=== PATIENT | male | born 1975 | race American Indian/Alaskan Native ===

== ENCOUNTER 2016-12-12 21:36 | Emergency (ER) | payer OTHER ==
[2016-12-12 22:01] VITALS: BP 167/77
--- NOTE | 2016-12-12 22:47 | EDM.PDOC ---
[id number] HEAD Time Seen by Provider: 12/12/16 21:40 Source of Information: Reports: Patient History Limitations: Reports: No limitations - History of Present Illness INITIAL COMMENTS - FREE TEXT/NARRATIVE: wlking into director product area under stirs struck head on bottom of stair, saw stars, nauseated, no vomiting, no loss of consciousness, Did not fall no other injury - Related Data Allergies/ADRs: Allergies Allergy/AdvReac Type Severity Reaction Status Date / Time lisinopril Allergy Airway Verified 10/16/16 00:46 Tightness valdecoxib [From Bextra] Allergy Swollen Verified 10/16/16 00:46 Tongue Home Meds: Home Meds Adalimumab [Humira] 1 injection SQ ASDIRECTED 05/09/15 [History] Aspirin [Adult Low Dose Aspirin EC] 1 tab PO DAILY 05/09/15 [History] Insulin Aspart [NovoLOG] 30 units SUBCUT TID 05/09/15 [History] Insulin Detemir [Levemir Flextouch] 124 units SUBCUT BEDTIME 05/09/15 [History] Losartan [Cozaar] 100 mg PO DAILY 05/09/15 [History] Omeprazole 20 mg PO DAILY 05/09/15 [History] metFORMIN [Glucophage] 1,000 mg PO DAILY 05/09/15 [History] Albuterol Inhaler 2 puff PF ASDIRECTED PRN 06/05/15 [History] Insulin Detemir [Levemir] 44 units INJECT ACBREAKFAST 11/01/15 [History] atorvaSTATin [Lipitor] 10 mg PO DAILY 11/01/15 [History] Methotrexate 8 tab PO ASDIRECTED 09/08/16 [History] Mometasone/Formoterol [Dulera 200-5 MCG] 2 puff IH DAILY 09/08/16 [History] Chlorthalidone 50 mg PO DAILY 12/12/16 [History] Ergocalciferol (Vitamin D2) [Vitamin D2] 1 cap PO DAILY 12/12/16 [History] Ketotifen Fumarate [Zaditor] 1 drop EYEBOTH ASDIRECTED PRN 12/12/16 [History] Methocarbamol 750 mg PO DAILY 12/12/16 [History] Vitamin B Complex 1 cap PO DAILY 12/12/16 [History] metFORMIN HCl [Metformin HCl] 1,500 mg PO BEDTIME 12/12/16 [History] traMADol HCl [Tramadol HCl] 1 - 2 tab PO ASDIRECTED PRN 12/12/16 [History] Past Medical History HEENT History: Reports: None Other HEENT History: myopia, astigmatism, diabetic retinopathy Cardiovascular History: Reports: High cholesterol, Hypertension, SOB on exertion Respiratory History: Reports: Asthma, Sleep apnea, SOB Gastrointestinal History: Reports: GERD Genitourinary History: Reports: None Neurological History: Reports: Neuropathy, diabetic Psychiatric History: Reports: None Endocrine/Metabolic History: Reports: Diabetes, type II, IDDM, Obesity/BMI 30+ Hematologic History: Reports: None Immunologic History: Reports: None Oncologic (Cancer) History: Reports: None Dermatologic History: Reports: Angiodema, Psoriasis - Infectious Disease History Infectious Disease History: Reports: Influenza Other Infectious Disease History: does not know if he has had any childhood diseases - Past Surgical History Head Surgeries/Procedures: Reports: None Cardiovascular Surgical History: Reports: Other (see below) Other Cardiovascular Surgeries/Procedures: angiogram (normal per patient) Musculoskeletal Surgical History: Reports: Arthroscopic knee Social & Family History - Family History Family Medical History: Noncontributory Cardiac: Reports: CAD, High cholesterol, Hypertension Respiratory: Reports: Asthma GI: Reports: Cholelithiasis Endocrine/Metabolic: Reports: Diabetes, type II, Obesity/MBI 30+ - Tobacco Use Smoking Status *Q: Never Smoker Second Hand Smoke Exposure: No - Caffeine Use Caffeine Use: Reports: Soda - Recreational Drug Use Recreational Drug Use: No - Living Situation & Occupation Living situation: Reports: with family Occupation: unemployed ED ROS GENERAL - Review of Systems Review Of Systems: See Below Constitutional: Reports: no symptoms HEENT: Reports: No symptoms Respiratory: Reports: No Symptoms Cardiovascular: Reports: No symptoms GI/Abdominal: Reports: No symptoms Musculoskeletal: Reports: no symptoms Skin: Reports: no symptoms Neurological: Reports: Headache. Denies: Numbness, Paresthesia, Tingling, Gait Disturbance Psychiatric: Reports: No symptoms ED EXAM, HEAD INJURY - Physical Exam Exam: See Below Exam Limited By: No limitations General Appearance: alert, mild distress Head: normocephalic, scalp tenderness (anterior mid parietal, no abrasions) Nexus Criteria: No: posterior, midline cervical tenderness, evidence of intoxication, altered level of consciousness, focal neurological deficit, painful distracting injuries Eyes: bilateral eye: EOMI Ears: normal external exam, normal TMs Nose: normal inspection Throat/Mouth: Normal inspection Neck: non-tender, normal alignment. No: painful range of motion, paraspinous muscle tender, spinous processes tender Respiratory: no respiratory distress GI/Abdominal Exam (Abbreviated): no distention Back Exam: normal inspection Course - Vital Signs Last Recorded V/S: Last Vital Signs Temp 98.1 F 12/12/16 21:37 Pulse 110 H 12/12/16 21:37 Resp 18 12/12/16 21:37 BP 167/77 H 12/12/16 21:37 Pulse Ox 95 12/12/16 21:37 Departure - Departure Time of Disposition: 22:35 Disposition: Home, Self-Care 01 Condition: good Clinical Impression: Concussion with no loss of consciousness Instructions: Head Injury, Adult, [id number] Referrals: Herminia Moncada, PAIN COORDINATOR [Primary Care Provider] - Forms: ED Department Discharge Additional Instructions: Head injury instructions tylenol 650mg every 6 hours as needed for sidcomfort ice to neck are, may alternate with heat for muscle spasm, family members to check on you through the night follow up if continued vomiting or other changes, clinic recheck Saturday
== END 2016-12-12 22:50 | disposition home or self-care (01) ==
LOC: DL.ED 21:36
DX: S06.0X0A Concussion without loss of consciousness, initial encounter (principal); E78.00 Pure hypercholesterolemia, unspecified; I10 Essential (primary) hypertension; K21.9 Gastro-esophageal reflux disease without esophagitis; E11.9 Type 2 diabetes mellitus without complications; Z88.8 Allergy status to other drugs, medicaments and biological substances; Z79.899 Other long term (current) drug therapy; W22.8XXA Striking against or struck by other objects, initial encounter
CPT/HCPCS: 70450; 99283

== ENCOUNTER 2017-07-21 00:27 | Emergency (ER) | payer OTHER ==
[2017-07-21 00:33] VITALS: BP 179/92
[2017-07-21] MEDS ORDERED: methylPREDNISolone Sodium Succinate 125 MG/2 ML SDV IM ONE (01:01)
[2017-07-21] MEDS ORDERED: Azithromycin 250 MG Tab PO ONE (01:01)
--- NOTE | 2017-07-21 01:08 | EDM.PDOC ---
ED HPI GENERAL MEDICAL PROBLEM - General Chief Complaint: Respiratory Problem Stated Complaint: LUNGS, DIFFICULTY BREATHING Time Seen by Provider: 07/21/17 01:03 Source of Information: Reports: Patient History Limitations: Reports: No Limitations - History of Present Illness INITIAL COMMENTS - FREE TEXT/NARRATIVE: been sick with cough past few days and nebs not helping, been feverish at home. Right Chest Pain Score (Numeric/FACES): 3 - Related Data Allergies Allergy/AdvReac Type Severity Reaction Status Date / Time lisinopril Allergy Airway Verified 07/21/17 00:39 Tightness valdecoxib [From Bextra] Allergy Swollen Verified 07/21/17 00:39 Tongue Home Meds: Home Meds Adalimumab [Humira] 1 injection SQ ASDIRECTED 05/09/15 [History] Aspirin [Adult Low Dose Aspirin EC] 1 tab PO DAILY 05/09/15 [History] Insulin Aspart [NovoLOG] 30 units SUBCUT TID 05/09/15 [History] Insulin Detemir [Levemir Flextouch] 124 units SUBCUT BEDTIME 05/09/15 [History] Losartan [Cozaar] 100 mg PO DAILY 05/09/15 [History] Omeprazole 20 mg PO DAILY 05/09/15 [History] metFORMIN [Glucophage] 1,000 mg PO DAILY 05/09/15 [History] Albuterol Inhaler 2 puff PF ASDIRECTED PRN 06/05/15 [History] Insulin Detemir [Levemir] 44 units INJECT ACBREAKFAST 11/01/15 [History] atorvaSTATin [Lipitor] 10 mg PO DAILY 11/01/15 [History] Methotrexate 8 tab PO ASDIRECTED 09/08/16 [History] Chlorthalidone 50 mg PO DAILY 12/12/16 [History] Ketotifen Fumarate [Zaditor] 1 drop EYEBOTH ASDIRECTED PRN 12/12/16 [History] Vitamin B Complex 1 cap PO DAILY 12/12/16 [History] metFORMIN HCl [Metformin HCl] 1,500 mg PO BEDTIME 12/12/16 [History] traMADol HCl [Tramadol HCl] 1 - 2 tab PO ASDIRECTED PRN 12/12/16 [History] Albuterol/Ipratropium [DuoNeb 3.0-0.5 MG/3 ML] 3 ml NEB Q6HRRT PRN 07/21/17 [ History] Pioglitazone [Actos] 30 mg PO DAILY 07/21/17 [History] Past Medical History HEENT History: Reports: None Other HEENT History: myopia, astigmatism, diabetic retinopathy Cardiovascular History: Reports: High Cholesterol, Hypertension, SOB on Exertion Respiratory History: Reports: Asthma, Sleep Apnea, SOB Gastrointestinal History: Reports: GERD Genitourinary History: Reports: None Neurological History: Reports: Neuropathy, Diabetic Psychiatric History: Reports: None Endocrine/Metabolic History: Reports: Diabetes, Type II, IDDM, Obesity/BMI 30+ Hematologic History: Reports: None Immunologic History: Reports: None Oncologic (Cancer) History: Reports: None Dermatologic History: Reports: Angiodema, Psoriasis - Infectious Disease History Infectious Disease History: Reports: Influenza Other Infectious Disease History: does not know if he has had any childhood diseases - Past Surgical History Head Surgeries/Procedures: Reports: None Musculoskeletal Surgical History: Reports: Arthroscopic Knee Social & Family History - Family History Family Medical History: Noncontributory Cardiac: Reports: CAD, High Cholesterol, Hypertension Respiratory: Reports: Asthma GI: Reports: Cholelithiasis Endocrine/Metabolic: Reports: Diabetes, type II, Obesity/MBI 30+ - Tobacco Use Smoking Status *Q: Never Smoker Second Hand Smoke Exposure: No - Caffeine Use Caffeine Use: Reports: Soda - Recreational Drug Use Recreational Drug Use: No - Living Situation & Occupation Living situation: Reports: with Family Occupation: Unemployed ED ROS GENERAL - Review of Systems Review Of Systems: ROS reveals no pertinent complaints other than HPI. ED EXAM, GENERAL - Physical Exam Exam: See Below Exam Limited By: No Limitations General Appearance: Alert, WD/WN, Mild Distress, Other (episodic cough spasms) Ears: Hearing Grossly Normal Throat/Mouth: Normal Voice, No Airway Compromise Head: Atraumatic Neck: Non-Tender, Full Range of Motion Respiratory/Chest: No Respiratory Distress, No Accessory Muscle Use, Rhonchi, Wheezing. No: Decreased Breath Sounds Cardiovascular: Regular Rate, Rhythm GI/Abdominal: Soft, Non-Tender Neurological: Alert, Oriented, Normal Cognition, Normal Gait, No Motor/Sensory Deficits Psychiatric: Normal Affect, Normal Mood Skin Exam: Warm, Dry, Normal Color Lymphatic: No Adenopathy Course - Vital Signs Last Recorded V/S: Last Vital Signs Temp 37.1 C 07/21/17 00:29 Pulse 93 07/21/17 00:29 Resp 18 07/21/17 00:29 BP 179/92 H 07/21/17 00:29 Pulse Ox 97 07/21/17 00:29 - Orders/Labs/Meds Orders: Active Orders 24 hr Category Date Time Status RT Aerosol Therapy [RC] ASDIRECTED Care 07/21/17 01:01 Ordered Meds: Medications Discontinued Medications Generic Name Dose Route Start Last Admin Trade Name Montez PRN Reason Stop Dose Admin Albuterol/Ipratropium 3 ml 07/21/17 01:01 Duoneb 3.0-0.5 Mg/3 Ml NEB 07/21/17 01:02 ONETIME ONE Azithromycin 500 mg 07/21/17 01:01 Zithromax PO 07/21/17 01:02 ONETIME ONE Methylprednisolone Sodium Succinate 125 mg 07/21/17 01:01 Solu-Medrol IM 07/21/17 01:02 ONETIME ONE Departure - Departure Time of Disposition: 01:08 Disposition: Home, Self-Care 01 Condition: Good Clinical Impression: Bronchospasm with bronchitis, acute - Discharge Information Instructions: Bronchospasm, Adult, [id number] Additional Instructions: 1) continue nebs 2) don't sleep flat at night 3) drink lots of liquids 4) recheck as needed rx given; z-rhina medrol dospak - My Orders Last 24 Hours: My Active Orders 07/21/17 01:01 RT Aerosol Therapy [RC] ASDIRECTED - Assessment/Plan Last 24 Hours: My Active Orders 07/21/17 01:01 RT Aerosol Therapy [RC] ASDIRECTED
[2017-07-21] MEDS: Albuterol/Ipratropium 3.0-0.5 MG/3 ML Neb Soln NEB ONE ×2 (01:09→01:23)
[2017-07-21] MEDS ORDERED: Albuterol/Ipratropium 3.0-0.5 MG/3 ML Neb Soln ONE (01:13)
== END 2017-07-21 01:30 | disposition home or self-care (01) ==
LOC: DL.ED 00:27
DX: J20.9 Acute bronchitis, unspecified (principal); I10 Essential (primary) hypertension; E78.00 Pure hypercholesterolemia, unspecified; J45.909 Unspecified asthma, uncomplicated; K21.9 Gastro-esophageal reflux disease without esophagitis; G47.30 Sleep apnea, unspecified; Z79.82 Long term (current) use of aspirin; Z79.899 Other long term (current) drug therapy; Z88.8 Allergy status to other drugs, medicaments and biological substances
CPT/HCPCS: 96372; 99284; A9270; J2930; 99283

== ENCOUNTER 2017-12-14 23:33 | Emergency (ER) | payer OTHER ==
[2017-12-15 00:07] VITALS: BP 160/94
--- NOTE | 2017-12-15 00:19 | EDM.PDOC ---
ED HPI GENERAL MEDICAL PROBLEM - General Chief Complaint: Upper Extremity Injury/Pain Stated Complaint: BROKEN THUMB [id number] Time Seen by Provider: 12/15/17 00:16 Source of Information: Reports: Patient History Limitations: Reports: No Limitations - History of Present Illness INITIAL COMMENTS - FREE TEXT/NARRATIVE: left thumb got stepped on last week. nit getting better and not bending well. Left 1-Thumb Pain Score (Numeric/FACES): 6 - Related Data Allergies Allergy/AdvReac Type Severity Reaction Status Date / Time lisinopril Allergy Airway Verified 12/15/17 00:07 Tightness valdecoxib [From Bextra] Allergy Swollen Verified 12/15/17 00:07 Tongue Home Meds: Home Meds Adalimumab [Humira] 1 injection SQ ASDIRECTED 05/09/15 [History] Aspirin [Adult Low Dose Aspirin EC] 1 tab PO DAILY 05/09/15 [History] Insulin Aspart [NovoLOG] 30 units SUBCUT TID 05/09/15 [History] Insulin Detemir [Levemir Flextouch] 124 units SUBCUT BEDTIME 05/09/15 [History] Losartan [Cozaar] 100 mg PO DAILY 05/09/15 [History] Omeprazole 20 mg PO DAILY 05/09/15 [History] metFORMIN [Glucophage] 1,000 mg PO DAILY 05/09/15 [History] Albuterol Inhaler 2 puff PF ASDIRECTED PRN 06/05/15 [History] Insulin Detemir [Levemir] 44 units INJECT ACBREAKFAST 11/01/15 [History] atorvaSTATin [Lipitor] 10 mg PO DAILY 11/01/15 [History] Methotrexate 8 tab PO ASDIRECTED 09/08/16 [History] Chlorthalidone 50 mg PO DAILY 12/12/16 [History] Ketotifen Fumarate [Zaditor] 1 drop EYEBOTH ASDIRECTED PRN 12/12/16 [History] Vitamin B Complex 1 cap PO DAILY 12/12/16 [History] metFORMIN HCl [Metformin HCl] 1,500 mg PO BEDTIME 12/12/16 [History] traMADol HCl [Tramadol HCl] 1 - 2 tab PO ASDIRECTED PRN 12/12/16 [History] Albuterol/Ipratropium [DuoNeb 3.0-0.5 MG/3 ML] 3 ml NEB Q6HRRT PRN 10/29/17 [ History] Pioglitazone [Actos] 30 mg PO DAILY 07/21/17 [History] Celecoxib [CeleBREX] 200 mg PO DAILY 12/15/17 [History] Past Medical History HEENT History: Reports: None Other HEENT History: myopia, astigmatism, diabetic retinopathy Cardiovascular History: Reports: High Cholesterol, Hypertension, SOB on Exertion Respiratory History: Reports: Asthma, Sleep Apnea, SOB Gastrointestinal History: Reports: GERD Genitourinary History: Reports: None Neurological History: Reports: Neuropathy, Diabetic Psychiatric History: Reports: None Endocrine/Metabolic History: Reports: Diabetes, Type II, IDDM, Obesity/BMI 30+ Hematologic History: Reports: None Immunologic History: Reports: None Oncologic (Cancer) History: Reports: None Dermatologic History: Reports: Angiodema, Psoriasis - Infectious Disease History Infectious Disease History: Reports: Influenza Other Infectious Disease History: does not know if he has had any childhood diseases - Past Surgical History Head Surgeries/Procedures: Reports: None Musculoskeletal Surgical History: Reports: Arthroscopic Knee Social & Family History - Family History Family Medical History: Noncontributory Cardiac: Reports: CAD, High Cholesterol, Hypertension Respiratory: Reports: Asthma GI: Reports: Cholelithiasis Endocrine/Metabolic: Reports: Diabetes, type II, Obesity/MBI 30+ - Tobacco Use Smoking Status *Q: Never Smoker Second Hand Smoke Exposure: No - Caffeine Use Caffeine Use: Reports: Coffee, Energy Drinks, Soda, Tea - Recreational Drug Use Recreational Drug Use: No - Living Situation & Occupation Living situation: Reports: with Family Occupation: Unemployed Review of Systems - Review of Systems Review Of Systems: ROS reveals no pertinent complaints other than HPI. ED EXAM, GENERAL - Physical Exam Exam: See Below Exam Limited By: No Limitations General Appearance: Alert, WD/WN, No Apparent Distress Ears: Hearing Grossly Normal Throat/Mouth: Normal Voice, No Airway Compromise Head: Atraumatic Neck: Non-Tender, Full Range of Motion Respiratory/Chest: No Respiratory Distress Cardiovascular: Regular Rate, Rhythm GI/Abdominal: Soft, Non-Tender Extremities: Limited Range of Motion, Other (left thumb tender R/P, [place] wnl. no gross D/D. c/o problem with flexion-extension) Neurological: Alert, Oriented, Normal Cognition, Normal Gait, No Motor/Sensory Deficits Psychiatric: Normal Affect, Normal Mood Skin Exam: Warm, Dry, Normal Color Lymphatic: No Adenopathy Course - Vital Signs Last Recorded V/S: Last Vital Signs Temp 37.1 C 12/14/17 23:59 Pulse 118 H 12/14/17 23:59 Resp 18 12/14/17 23:59 BP 160/94 H 12/14/17 23:59 Pulse Ox 98 12/14/17 23:59 - Orders/Labs/Meds Orders: Active Orders 24 hr Category Date Time Status Fingers Thumb Lt FA [CR] Urgent Exams 12/15/17 00:15 Taken Departure - Departure Time of Disposition: 01:20 Disposition: Home, Self-Care 01 Condition: Good Clinical Impression: Injury of thumb, left Qualifiers: Encounter type: initial encounter Qualified Code(s): S69.92XA - Unspecified injury of left wrist, hand and finger(s), initial encounter - Discharge Information Forms: ED Department Discharge Additional Instructions: 1) see clinic Saturday for ORTHOPEDIC REFERRAL with tendon problem in moving thumb. - My Orders Last 24 Hours: My Active Orders 12/15/17 00:15 Fingers Thumb Lt FA [CR] Urgent - Assessment/Plan Last 24 Hours: My Active Orders 12/15/17 00:15 Fingers Thumb Lt FA [CR] Urgent
== END 2017-12-15 01:27 | disposition home or self-care (01) ==
LOC: DL.ED 23:33
DX: S69.92XA Unspecified injury of left wrist, hand and finger(s), initial encounter (principal); E66.9 Obesity, unspecified; I10 Essential (primary) hypertension; E78.00 Pure hypercholesterolemia, unspecified; E11.40 Type 2 diabetes mellitus with diabetic neuropathy, unspecified; Z79.4 Long term (current) use of insulin; Z79.899 Other long term (current) drug therapy; W22.8XXA Striking against or struck by other objects, initial encounter; Z79.82 Long term (current) use of aspirin; Z88.8 Allergy status to other drugs, medicaments and biological substances; Z88.6 Allergy status to analgesic agent; Z68.41 Body mass index [BMI] 40.0-44.9, adult
CPT/HCPCS: 73140-FA; 99282; 99283

== ENCOUNTER 2018-06-19 23:12 | Emergency (ER) | payer OTHER ==
[2018-06-19] MEDS ORDERED: Ondansetron 4 MG Tab.DIS PO ONE (23:13)
[2018-06-19] MEDS ORDERED: Acetaminophen/HYDROcodone 325-10 MG Tab PO ONE (23:13)
--- NOTE | 2018-06-19 23:27 | EDM.PDOC ---
ED HPI GENERAL MEDICAL PROBLEM - General Chief Complaint: Genitourinary Problem Stated Complaint: KIDNEY STONE [id number] Time Seen by Provider: 06/19/18 23:25 Source of Information: Reports: Patient History Limitations: Reports: No Limitations - History of Present Illness INITIAL COMMENTS - FREE TEXT/NARRATIVE: states right kidney pain onset 7-7;30 and been slowly moving down to front. has this before from K-stones. denies N/V Right Flank Pain Score (Numeric/FACES): 6 - Related Data Allergies Allergy/AdvReac Type Severity Reaction Status Date / Time lisinopril Allergy Airway Verified 12/15/17 00:07 Tightness valdecoxib [From Bextra] Allergy Swollen Verified 12/15/17 00:07 Tongue Home Meds: Home Meds Adalimumab [Humira] 1 injection SQ ASDIRECTED 05/09/15 [History] Aspirin [Adult Low Dose Aspirin EC] 1 tab PO DAILY 05/09/15 [History] Insulin Aspart [NovoLOG] 30 units SUBCUT TID 05/09/15 [History] Insulin Detemir [Levemir Flextouch] 124 units SUBCUT BEDTIME 05/09/15 [History] Losartan [Cozaar] 100 mg PO DAILY 05/09/15 [History] Omeprazole 20 mg PO DAILY 05/09/15 [History] metFORMIN [Glucophage] 1,000 mg PO BEDTIME 05/09/15 [History] Albuterol Inhaler 2 puff PF ASDIRECTED PRN 06/05/15 [History] Insulin Detemir [Levemir] 44 units INJECT ACBREAKFAST 11/01/15 [History] atorvaSTATin [Lipitor] 10 mg PO DAILY 11/01/15 [History] Chlorthalidone 50 mg PO DAILY 12/12/16 [History] metFORMIN HCl [Metformin HCl] 1,500 mg PO DAILY 12/12/16 [History] traMADol HCl [Tramadol HCl] 1 - 2 tab PO ASDIRECTED PRN 12/12/16 [History] Albuterol/Ipratropium [DuoNeb 3.0-0.5 MG/3 ML] 3 ml NEB Q6HRRT PRN 07/21/17 [ History] Pioglitazone [Actos] 30 mg PO DAILY 07/21/17 [History] Past Medical History HEENT History: Reports: None Other HEENT History: myopia, astigmatism, diabetic retinopathy Cardiovascular History: Reports: High Cholesterol, Hypertension, SOB on Exertion Respiratory History: Reports: Asthma, Sleep Apnea, SOB Gastrointestinal History: Reports: GERD Genitourinary History: Reports: None Neurological History: Reports: Neuropathy, Diabetic Psychiatric History: Reports: None Endocrine/Metabolic History: Reports: Diabetes, Type II, IDDM, Obesity/BMI 30+ Hematologic History: Reports: None Immunologic History: Reports: None Oncologic (Cancer) History: Reports: None Dermatologic History: Reports: Angiodema, Psoriasis - Infectious Disease History Infectious Disease History: Reports: Influenza Other Infectious Disease History: does not know if he has had any childhood diseases - Past Surgical History Head Surgeries/Procedures: Reports: None Musculoskeletal Surgical History: Reports: Arthroscopic Knee Social & Family History - Family History Family Medical History: Noncontributory Cardiac: Reports: CAD, High Cholesterol, Hypertension Respiratory: Reports: Asthma GI: Reports: Cholelithiasis Endocrine/Metabolic: Reports: Diabetes, type II, Obesity/MBI 30+ - Caffeine Use Caffeine Use: Reports: Coffee, Energy Drinks, Soda, Tea - Living Situation & Occupation Living situation: Reports: with Family Occupation: Unemployed ED ROS GENERAL - Review of Systems Review Of Systems: ROS reveals no pertinent complaints other than HPI. ED EXAM, RENAL/ - Physical Exam Exam: See Below Exam Limited By: No Limitations General Appearance: Alert, WD/WN, No Apparent Distress Ears: Hearing Grossly Normal Throat/Mouth: Normal Voice, No Airway Compromise Head: Atraumatic Neck: Non-Tender, Full Range of Motion Respiratory/Chest: No Respiratory Distress Cardiovascular: Regular Rate, Rhythm GI/Abdominal: Soft, Non-Tender Back Exam: CVA Tenderness (R) Neurological: Alert, Oriented, Normal Cognition, Normal Gait, No Motor/Sensory Deficits Psychiatric: Flat Affect Skin Exam: Warm, Dry, Normal Color Lymphatic: No Adenopathy Course - Vital Signs Last Recorded V/S: Last Vital Signs Temp 36.8 C 06/19/18 23:25 Pulse 111 H 06/19/18 23:25 Resp 22 H 06/19/18 23:25 BP 144/83 H 06/19/18 23:25 Pulse Ox 98 06/19/18 23:25 - Orders/Labs/Meds Labs: Laboratory Tests 06/19/18 Range/Units 23:18 Urine Color Dark yellow (YELLOW) Urine Appearance Turbid (CLEAR) Urine pH 5.5 (5.0-9.0) Ur Specific [place] 1.020 (1.005-1.030) Urine Protein Negative (NEGATIVE) Urine Glucose (UA) 500 H (NEGATIVE) Urine Ketones Negative (NEGATIVE) Urine Occult Blood Large H (NEGATIVE) Urine Nitrite Negative (NEGATIVE) Urine Bilirubin Negative (NEGATIVE) Urine Urobilinogen 0.2 (0.2-1.0) mg/dL Ur Leukocyte Esterase Negative (NEGATIVE) Urine RBC >100 H /HPF Urine WBC 0-5 (0-5/HPF) /HPF Ur Epithelial Cells Rare /HPF Amorphous Sediment Few (0/HPF) /HPF Urine Bacteria Rare (0-FEW/HPF) /HPF Urine Mucus Rare /LPF Meds: Medications Discontinued Medications Generic Name Dose Route Start Last Admin Trade Name Freq PRN Reason Stop Dose Admin Hydrocodone Bitart/Acetaminophen Confirm 06/20/18 01:04 06/20/18 01:08 [place] 325-10 Mg Administered 06/20/18 01:05 Not Given Dose 1 tab .ROUTE .STK-MED ONE Ondansetron HCl Confirm 06/20/18 01:03 06/20/18 01:08 Zofran Odt Administered 06/20/18 01:04 Not Given Dose 4 mg .ROUTE .STK-MED ONE - Re-Assessments/Exams Free Text/Narrative Re-Assessment/Exam: 06/20/18 00:49 results discussed with pt. Departure - Departure Time of Disposition: 01:05 Disposition: Home, Self-Care 01 Condition: Good Clinical Impression: Kidney stone - Discharge Information Instructions: Kidney Stones, [id number] Forms: ED Department Discharge Additional Instructions: 1) drink lots of liquids 2) see clinic tomorrow for NEPHROLOGY REFERRAL for possible lithitrypsy 3) recheck if there is any change or concern rx togo; zofran ODT 4mg x 1 noco 10 x 1
[2018-06-19 23:36] VITALS: BP 144/83
[2018-06-20] MEDS ORDERED: Ondansetron 4 MG Tab.DIS ONE (01:03)
[2018-06-20] MEDS ORDERED: Acetaminophen/HYDROcodone 325-10 MG Tab ONE (01:04)
== END 2018-06-20 01:08 | disposition home or self-care (01) ==
LOC: DL.ED 23:12
DX: N20.0 Calculus of kidney (principal); E78.00 Pure hypercholesterolemia, unspecified; I10 Essential (primary) hypertension; E11.40 Type 2 diabetes mellitus with diabetic neuropathy, unspecified; Z88.8 Allergy status to other drugs, medicaments and biological substances; Z79.899 Other long term (current) drug therapy; Z79.82 Long term (current) use of aspirin; Z79.4 Long term (current) use of insulin
CPT/HCPCS: 74176; 81001; 99284; A9270; 99283

== ENCOUNTER 2018-10-17 00:06 | Emergency (ER) | payer OTHER ==
[2018-10-17] MEDS ORDERED: Ketorolac 30 MG/ML SDV IVPUSH ONE (00:11)
[2018-10-17 00:13] VITALS: BP 143/89
[2018-10-17 00:36] LABS: ANION GAP 16.5
--- NOTE | 2018-10-17 00:54 | EDM.PDOC ---
ED HPI GENERAL MEDICAL PROBLEM - General Chief Complaint: Genitourinary Problem Stated Complaint: AMBULANCE-UNKNOWN Time Seen by Provider: 10/17/18 00:51 Source of Information: Reports: Patient History Limitations: Reports: No Limitations - History of Present Illness INITIAL COMMENTS - FREE TEXT/NARRATIVE: had uretral stent removed today and developed RLQ pain going down to groin tonight. took Rx from urolog but not helping. looks like there is blood in urine and been having problem urinating also. rlq Pain Score (Numeric/FACES): 7 - Related Data Allergies Allergy/AdvReac Type Severity Reaction Status Date / Time lisinopril Allergy Airway Verified 08/14/18 11:15 Tightness valdecoxib [From Bextra] Allergy Swollen Verified 08/14/18 11:15 Tongue Home Meds: Home Meds Adalimumab [Humira] 1 injection SQ ASDIRECTED 05/09/15 [History] Aspirin [Adult Low Dose Aspirin EC] 1 tab PO DAILY 05/09/15 [History] Insulin Aspart [NovoLOG] 30 units SUBCUT TID 05/09/15 [History] Insulin Detemir [Levemir Flextouch] 124 units SUBCUT BEDTIME 05/09/15 [History] Losartan [Cozaar] 100 mg PO DAILY 05/09/15 [History] Omeprazole 20 mg PO DAILY 05/09/15 [History] metFORMIN [Glucophage] 1,000 mg PO BEDTIME 05/09/15 [History] Albuterol Inhaler 2 puff PF ASDIRECTED PRN 06/05/15 [History] Insulin Detemir [Levemir] 44 units INJECT ACBREAKFAST 11/01/15 [History] atorvaSTATin [Lipitor] 10 mg PO DAILY 11/01/15 [History] Chlorthalidone 50 mg PO DAILY 12/12/16 [History] metFORMIN HCl [Metformin HCl] 1,500 mg PO DAILY 12/12/16 [History] traMADol HCl [Tramadol HCl] 1 - 2 tab PO ASDIRECTED PRN 12/12/16 [History] Albuterol/Ipratropium [DuoNeb 3.0-0.5 MG/3 ML] 3 ml NEB Q6HRRT PRN 07/21/17 [ History] Pioglitazone [Actos] 30 mg PO DAILY 07/21/17 [History] Saxagliptin HCl [Onglyza] 5 mg PO DAILY 11/22/18 [History] Past Medical History HEENT History: Reports: None Other HEENT History: myopia, astigmatism, diabetic retinopathy Cardiovascular History: Reports: CAD, High Cholesterol, Hypertension, SOB on Exertion Respiratory History: Reports: Asthma, Sleep Apnea, SOB Gastrointestinal History: Reports: GERD Genitourinary History: Reports: Renal Calculus Neurological History: Reports: Neuropathy, Diabetic Psychiatric History: Reports: None Endocrine/Metabolic History: Reports: Diabetes, Type II, IDDM, Obesity/BMI 30+ Hematologic History: Reports: None Immunologic History: Reports: None Oncologic (Cancer) History: Reports: None Dermatologic History: Reports: Angiodema, Psoriasis - Infectious Disease History Infectious Disease History: Reports: Influenza Other Infectious Disease History: does not know if he has had any childhood diseases - Past Surgical History Head Surgeries/Procedures: Reports: None Musculoskeletal Surgical History: Reports: Arthroscopic Knee Social & Family History - Family History Family Medical History: Noncontributory Cardiac: Reports: CAD, High Cholesterol, Hypertension Respiratory: Reports: Asthma GI: Reports: Cholelithiasis Endocrine/Metabolic: Reports: Diabetes, type II, Obesity/MBI 30+ - Tobacco Use Smoking Status *Q: Never Smoker Second Hand Smoke Exposure: No - Caffeine Use Caffeine Use: Reports: Coffee, Energy Drinks, Soda, Tea - Recreational Drug Use Recreational Drug Use: No - Living Situation & Occupation Living situation: Reports: with Family Occupation: Unemployed ED ROS GENERAL - Review of Systems Review Of Systems: ROS reveals no pertinent complaints other than HPI. ED EXAM, RENAL/ - Physical Exam Exam: See Below Exam Limited By: No Limitations General Appearance: Alert, WD/WN, Mild Distress, Moderate Distress, Other (pain) Ears: Hearing Grossly Normal Throat/Mouth: Normal Voice, No Airway Compromise Head: Atraumatic Neck: Non-Tender, Full Range of Motion Respiratory/Chest: No Respiratory Distress Cardiovascular: Regular Rate, Rhythm GI/Abdominal: Soft, Tender, Other (suprapub, RLQ region). No: Distended, Guarding, Rigid, Rebound Back Exam: CVA Tenderness (R) Neurological: Alert, Oriented, Normal Cognition, Normal Gait, No Motor/Sensory Deficits Psychiatric: Tearful Skin Exam: Warm, Dry, Normal Color Lymphatic: No Adenopathy Course - Vital Signs Last Recorded V/S: Last Vital Signs Temp 37.0 C 10/17/18 00:09 Pulse 105 H 10/17/18 00:09 Resp 18 10/17/18 00:09 BP 143/89 H 10/17/18 00:09 Pulse Ox 96 10/17/18 00:09 - Orders/Labs/Meds Orders: Active Orders 24 hr Category Date Time Status CULTURE URINE [RM] Stat Lab 10/17/18 00:33 Received Labs: Laboratory Tests 10/17/18 10/17/18 10/17/18 Range/Units 00:10 00:10 00:10 WBC 10.9 H (5.0-10.0) 10^3/uL RBC 4.69 (4.6-6.2) 10^6/uL Hgb 12.3 L (14.0-18.0) g/dL Hct 38.8 L (40.0-54.0) % MCV 82.7 (80-100) fL MCH 26.2 L (27.0-34.0) pg MCHC 31.7 L (33.0-35.0) g/dL Plt Count 315 (150-450) 10^3/uL Neut % (Auto) 65.2 (42.2-75.2) % Lymph % (Auto) 22.2 (20.5-50.1) % [place] % (Auto) 7.0 (2-8) % Eos % (Auto) 5.0 H (1.0-3.0) % Baso % (Auto) 0.6 (0.0-1.0) % Sodium 132 L (135-145) mmol/L Potassium 3.5 L (3.6-5.0) mmol/L Chloride 97 L (101-111) mmol/L Carbon Dioxide 22.0 (21.0-31.0) mmol/L Anion Gap 16.5 BUN 16 (7-18) mg/dL Creatinine 1.4 H (0.6-1.3) mg/dL Est Cr Clr Drug Dosing 70.97 mL/min Estimated GFR (MDRD) 56 BUN/Creatinine Ratio 11.42 Glucose 284 H (74-105) mg/dL Lactic Acid 2.5 H (0.5-2.2) mmol/L Calcium 8.0 L (8.4-10.2) mg/dl Total Bilirubin 0.5 (0.2-1.0) mg/dL AST 28 (10-42) IU/L ALT 31 (10-60) IU/L Alkaline Phosphatase 47 (42-121) IU/L Total Protein 7.2 (6.7-8.2) g/dl Albumin 3.6 (3.2-5.5) g/dl Globulin 3.6 Albumin/Globulin Ratio 1.00 Urine Color (YELLOW) Urine Appearance (CLEAR) Urine pH (5.0-9.0) Ur Specific [place] (1.005-1.030) Urine Protein (NEGATIVE) Urine Glucose (UA) (NEGATIVE) Urine Ketones (NEGATIVE) Urine Occult Blood (NEGATIVE) Urine Nitrite (NEGATIVE) Urine Bilirubin (NEGATIVE) Urine Urobilinogen (0.2-1.0) mg/dL Ur Leukocyte Esterase (NEGATIVE) Urine RBC /HPF Urine WBC (0-5/HPF) /HPF Ur Epithelial Cells /HPF Urine Bacteria (0-FEW/HPF) /HPF Urine Mucus /LPF 10/17/18 Range/Units 00:33 WBC (5.0-10.0) 10^3/uL RBC (4.6-6.2) 10^6/uL Hgb (14.0-18.0) g/dL Hct (40.0-54.0) % MCV (80-100) fL MCH (27.0-34.0) pg MCHC (33.0-35.0) g/dL Plt Count (150-450) 10^3/uL Neut % (Auto) (42.2-75.2) % Lymph % (Auto) (20.5-50.1) % [place] % (Auto) (2-8) % Eos % (Auto) (1.0-3.0) % Baso % (Auto) (0.0-1.0) % Sodium (135-145) mmol/L Potassium (3.6-5.0) mmol/L Chloride (101-111) mmol/L Carbon Dioxide (21.0-31.0) mmol/L Anion Gap BUN (7-18) mg/dL Creatinine (0.6-1.3) mg/dL Est Cr Clr Drug Dosing mL/min Estimated GFR (MDRD) BUN/Creatinine Ratio Glucose (74-105) mg/dL Lactic Acid (0.5-2.2) mmol/L Calcium (8.4-10.2) mg/dl Total Bilirubin (0.2-1.0) mg/dL AST (10-42) IU/L ALT (10-60) IU/L Alkaline Phosphatase (42-121) IU/L Total Protein (6.7-8.2) g/dl Albumin (3.2-5.5) g/dl Globulin Albumin/Globulin Ratio Urine Color [place] (YELLOW) Urine Appearance Turbid (CLEAR) Urine pH 5.0 (5.0-9.0) Ur Specific [place] >= 1.030 (1.005-1.030) Urine Protein >=300 H (NEGATIVE) Urine Glucose (UA) 500 H (NEGATIVE) Urine Ketones 15 H (NEGATIVE) Urine Occult Blood Large H (NEGATIVE) Urine Nitrite Positive H (NEGATIVE) Urine Bilirubin Small H (NEGATIVE) Urine Urobilinogen 2.0 H (0.2-1.0) mg/dL Ur Leukocyte Esterase Negative (NEGATIVE) Urine RBC Semi-packed H /HPF Urine WBC 5-10 H (0-5/HPF) /HPF Ur Epithelial Cells Few /HPF Urine Bacteria Moderate H (0-FEW/HPF) /HPF Urine Mucus Moderate H /LPF Meds: Medications Discontinued Medications Generic Name Dose Route Start Last Admin Trade Name Freq PRN Reason Stop Dose Admin Ketorolac Tromethamine 30 mg 10/17/18 00:11 10/17/18 00:34 Toradol IVPUSH 10/17/18 00:12 30 mg ONETIME ONE Administration - Re-Assessments/Exams Free Text/Narrative Re-Assessment/Exam: 10/17/18 03:04 results discussed with pt who is pain free presently. able to produce urine for u/a Departure - Departure Time of Disposition: 03:04 Disposition: Home, Self-Care 01 Condition: Good Clinical Impression: Renal colic on right side - Discharge Information Instructions: Renal Colic, [id number] Forms: ED Department Discharge Additional Instructions: 1) continue home meds 2) follow up at clinic 3) recheck as needed - My Orders Last 24 Hours: My Active Orders 10/17/18 00:33 CULTURE URINE [RM] Stat - Assessment/Plan Last 24 Hours: My Active Orders 10/17/18 00:33 CULTURE URINE [RM] Stat
== END 2018-10-17 03:11 | disposition home or self-care (01) ==
LOC: DL.ED 00:06
DX: N20.0 Calculus of kidney (principal); I10 Essential (primary) hypertension; E11.9 Type 2 diabetes mellitus without complications; Z88.8 Allergy status to other drugs, medicaments and biological substances; Z79.82 Long term (current) use of aspirin; Z79.899 Other long term (current) drug therapy
CPT/HCPCS: 36415; 74176; 80053; 81001; 83605; 85025; 87086; 96374; 99284; J1885; 99283

== ENCOUNTER 2018-10-17 10:49 | Emergency (ER) | payer OTHER ==
[2018-10-17 11:06] VITALS: BP 151/98
[2018-10-17 11:30] LABS: ANION GAP 14.4; CHLORIDE,CL 98 mmol/L (101-111); SODIUM,NA 133 mmol/L (135-145)
[2018-10-17] MEDS ORDERED: Ketorolac 30 MG/ML SDV IVPUSH ONE (12:07)
[2018-10-17] MEDS ORDERED: Sodium Chloride 0.9% 10 ML Syringe FLUSH PRN (12:07)
[2018-10-17] MEDS ORDERED: Sodium Chloride 0.9% 1,000 ML IV ONE (12:07)
--- NOTE | 2018-10-17 12:52 | EDM.PDOC ---
ED HPI GENERAL MEDICAL PROBLEM - General Chief Complaint: Genitourinary Problem Stated Complaint: [facility] SENT HIM [id number] Time Seen by Provider: 10/17/18 10:57 Source of Information: Reports: Patient, RN, RN Notes Reviewed History Limitations: Reports: No Limitations - History of Present Illness INITIAL COMMENTS - FREE TEXT/NARRATIVE: Patient presents to ER from [facility]. He states he had a stent removed from kidney yesterday at [facility]. He presented to the ER last night with complaint of pain. He presented to [facility] with complaint of fever and pain. He was told to report to the ER. He presents with right lower quadrant /flank pain. He has had fever and chills. No nausea, vomiting, diarrhea, chest pain or shortness of breath. Onset: Today Duration: Getting Worse Location: Reports: Abdomen Quality: Reports: Ache Severity: Severe Improves with: Reports: None Worsens with: Reports: None Associated Symptoms: Reports: No Other Symptoms - Related Data Allergies Allergy/AdvReac Type Severity Reaction Status Date / Time lisinopril Allergy Airway Verified 10/17/18 11:06 Tightness valdecoxib [From Bextra] Allergy Swollen Verified 10/17/18 11:06 Tongue Home Meds: Home Meds Aspirin [Adult Low Dose Aspirin EC] 1 tab PO DAILY 05/09/15 [History] Insulin Aspart [NovoLOG] 30 units SUBCUT TID 05/09/15 [History] Insulin Detemir [Levemir Flextouch] 124 units SUBCUT BEDTIME 05/09/15 [History] Losartan [Cozaar] 100 mg PO DAILY 05/09/15 [History] Omeprazole 20 mg PO DAILY 05/09/15 [History] metFORMIN [Glucophage] 1,000 mg PO BEDTIME 05/09/15 [History] Albuterol Inhaler 2 puff PF ASDIRECTED PRN 06/05/15 [History] Insulin Detemir [Levemir] 44 units INJECT ACBREAKFAST 11/01/15 [History] atorvaSTATin [Lipitor] 10 mg PO DAILY 11/01/15 [History] Chlorthalidone 50 mg PO DAILY 12/12/16 [History] metFORMIN HCl [Metformin HCl] 1,500 mg PO DAILY 12/12/16 [History] traMADol HCl [Tramadol HCl] 1 - 2 tab PO ASDIRECTED PRN 12/12/16 [History] Albuterol/Ipratropium [DuoNeb 3.0-0.5 MG/3 ML] 3 ml NEB Q6HRRT PRN 07/21/17 [ History] Pioglitazone [Actos] 30 mg PO DAILY 07/21/17 [History] Saxagliptin HCl [Onglyza] 5 mg PO DAILY 08/14/18 [History] Past Medical History HEENT History: Reports: None Other HEENT History: myopia, astigmatism, diabetic retinopathy Cardiovascular History: Reports: CAD, High Cholesterol, Hypertension, SOB on Exertion Respiratory History: Reports: Asthma, Sleep Apnea, SOB Gastrointestinal History: Reports: GERD Genitourinary History: Reports: Renal Calculus Neurological History: Reports: Neuropathy, Diabetic Psychiatric History: Reports: None Endocrine/Metabolic History: Reports: Diabetes, Type II, IDDM, Obesity/BMI 30+ Hematologic History: Reports: None Immunologic History: Reports: None Oncologic (Cancer) History: Reports: None Dermatologic History: Reports: Angiodema, Psoriasis - Infectious Disease History Infectious Disease History: Reports: Influenza Other Infectious Disease History: does not know if he has had any childhood diseases - Past Surgical History Head Surgeries/Procedures: Reports: None Musculoskeletal Surgical History: Reports: Arthroscopic Knee Social & Family History - Family History Family Medical History: Noncontributory Cardiac: Reports: CAD, High Cholesterol, Hypertension Respiratory: Reports: Asthma GI: Reports: Cholelithiasis Endocrine/Metabolic: Reports: Diabetes, type II, Obesity/MBI 30+ - Tobacco Use Smoking Status *Q: Never Smoker Second Hand Smoke Exposure: No - Caffeine Use Caffeine Use: Reports: Energy Drinks - Recreational Drug Use Recreational Drug Use: No - Living Situation & Occupation Living situation: Reports: with Family Occupation: Unemployed ED ROS GENERAL - Review of Systems Review Of Systems: ROS reveals no pertinent complaints other than HPI. ED EXAM, RENAL/ - Physical Exam Exam: See Below Exam Limited By: No Limitations General Appearance: Alert, WD/WN, No Apparent Distress Eye Exam: Bilateral Eye: EOMI, Normal Inspection, PERRL Ears: Normal External Exam, Normal Canal, Hearing Grossly Normal, Normal TMs Nose: Normal Inspection, Normal Mucosa, No Blood Throat/Mouth: Normal Inspection, Normal Lips, Normal Teeth, Normal Gums, Normal Oropharynx, Normal Voice, No Airway Compromise Head: Atraumatic, Normocephalic Neck: Normal Inspection, Supple, Non-Tender, Full Range of Motion Respiratory/Chest: No Respiratory Distress, Lungs Clear, Normal Breath Sounds, No Accessory Muscle Use, Chest Non-Tender Cardiovascular: Normal Peripheral Pulses, Regular Rate, Rhythm, No Edema, No Gallop, No JVD, No Murmur, No Rub GI/Abdominal: Tender (right lower quadrant and right upper quadrant. He also has right CVA tenderness.) (Male) Exam: Deferred Rectal (Males) Exam: Deferred Back Exam: Normal Inspection, Full Range of Motion, NT Extremities: Normal Inspection, Normal Range of Motion, Non-Tender, Normal Capillary Refill, No Pedal Edema Neurological: Alert, Oriented, CN II-XII Intact, Normal Cognition, Normal Gait, Normal Reflexes, No Motor/Sensory Deficits Psychiatric: Normal Affect, Normal Mood Skin Exam: Warm, Dry, Intact, Normal Color, No Rash Lymphatic: No Adenopathy Course - Vital Signs Last Recorded V/S: Last Vital Signs Temp 97.6 F 10/17/18 10:53 Pulse 101 H 10/17/18 10:53 Resp 18 10/17/18 10:53 BP 151/98 H 10/17/18 10:53 Pulse Ox 96 10/17/18 10:53 - Orders/Labs/Meds Orders: Active Orders 24 hr Category Date Time Status Peripheral IV Care [RC] . DIRECTED Care 10/17/18 12:07 Active Peripheral IV Insertion Adult [OM.PC] Stat Oth 10/17/18 12:07 Ordered Labs: Laboratory Tests 10/17/18 10/17/18 10/17/18 Range/Units 10:52 11:02 11:02 WBC 9.6 (5.0-10.0) 10^3/uL RBC 4.67 (4.6-6.2) 10^6/uL Hgb 12.4 L (14.0-18.0) g/dL Hct 38.8 L (40.0-54.0) % MCV 83.1 (80-100) fL MCH 26.6 L (27.0-34.0) pg MCHC 32.0 L (33.0-35.0) g/dL Plt Count 313 (150-450) 10^3/uL Neut % (Auto) 65.5 (42.2-75.2) % Lymph % (Auto) 18.9 L (20.5-50.1) % [place] % (Auto) 8.9 H (2-8) % Eos % (Auto) 6.0 H (1.0-3.0) % Baso % (Auto) 0.7 (0.0-1.0) % Sodium 133 L (135-145) mmol/L Potassium 3.4 L (3.6-5.0) mmol/L Chloride 98 L (101-111) mmol/L Carbon Dioxide 24.0 (21.0-31.0) mmol/L Anion Gap 14.4 BUN 26 H (7-18) mg/dL Creatinine 1.1 (0.6-1.3) mg/dL Est Cr Clr Drug Dosing 90.33 mL/min Estimated GFR (MDRD) > 60 BUN/Creatinine Ratio 23.63 Glucose 216 H (74-105) mg/dL Calcium 8.4 (8.4-10.2) mg/dl Total Bilirubin 0.7 (0.2-1.0) mg/dL AST 25 (10-42) IU/L ALT 31 (10-60) IU/L Alkaline Phosphatase 48 (42-121) IU/L Total Protein 7.4 (6.7-8.2) g/dl Albumin 3.7 (3.2-5.5) g/dl Globulin 3.7 Albumin/Globulin Ratio 1.00 Urine Color Dark yellow (YELLOW) Urine Appearance Turbid (CLEAR) Urine pH 5.5 (5.0-9.0) Ur Specific [place] >= 1.030 (1.005-1.030) Urine Protein 100 H (NEGATIVE) Urine Glucose (UA) Negative (NEGATIVE) Urine Ketones Negative (NEGATIVE) Urine Occult Blood Large H (NEGATIVE) Urine Nitrite Positive H (NEGATIVE) Urine Bilirubin Negative (NEGATIVE) Urine Urobilinogen 0.2 (0.2-1.0) mg/dL Ur Leukocyte Esterase Small H (NEGATIVE) Urine RBC >100 H /HPF Urine WBC 10-20 H (0-5/HPF) /HPF Ur Epithelial Cells Few /HPF Amorphous Sediment Rare (0/HPF) /HPF Urine Bacteria Moderate H (0-FEW/HPF) /HPF Urine Mucus Few H /LPF Urine Yeast Few H (0/HPF) /HPF Meds: Medications Discontinued Medications Generic Name Dose Route Start Last Admin Trade Name Freq PRN Reason Stop Dose Admin Sodium Chloride 1,000 mls @ 999 mls/hr 10/17/18 12:07 10/17/18 12:15 Normal Saline IV 10/17/18 13:07 999 mls/hr .BOLUS ONE Administration Ketorolac Tromethamine 30 mg 10/17/18 12:07 10/17/18 12:19 Toradol IVPUSH 10/17/18 12:08 30 mg ONETIME ONE Administration Sodium Chloride 10 ml 10/17/18 12:07 10/17/18 12:16 Saline Flush FLUSH 10 ml ASDIRECTED PRN Administration Keep Vein Open Departure - Departure Time of Disposition: 12:50 Disposition: Home, Self-Care 01 Condition: Fair Clinical Impression: UTI, Urinary tract infectious disease - Discharge Information *PRESCRIPTION DRUG MONITORING PROGRAM REVIEWED*: No *COPY OF PRESCRIPTION DRUG MONITORING REPORT IN PATIENT KRANTHI: No Instructions: Urinary Tract Infection, Adult, [id number] Referrals: PCP,None [Primary Care Provider] - Forms: ED Department Discharge Additional Instructions: Drink plenty of water RX: Ciprofloxacin Follow up with your primary care facility May use Tylenol and/or Ibuprofen as directed for pain - My Orders Last 24 Hours: My Active Orders 10/17/18 12:07 Peripheral IV Care [RC] . DIRECTED Peripheral IV Insertion Adult [OM.PC] Stat - Assessment/Plan Last 24 Hours: My Active Orders 10/17/18 12:07 Peripheral IV Care [RC] . DIRECTED Peripheral IV Insertion Adult [OM.PC] Stat
== END 2018-10-17 13:21 | disposition home or self-care (01) ==
LOC: DL.ED 10:49
DX: N39.0 Urinary tract infection, site not specified (principal); I10 Essential (primary) hypertension; E11.9 Type 2 diabetes mellitus without complications; E66.9 Obesity, unspecified; Z88.8 Allergy status to other drugs, medicaments and biological substances; Z79.82 Long term (current) use of aspirin
CPT/HCPCS: 36415; 80053; 81001; 85025; 96361; 96374; 99284; J1885; J7030; 99283

== ENCOUNTER 2019-04-16 06:55 | Day surgery (SDC) | payer BC, OTHER ==
[~2019-04-16 06:55] MED LIST: Dextrose 5%-0.45% NaCl 1,000 ML IV SCH; Midazolam 1 MG/ML 2 ML SDV ONE; Sodium Chloride 0.9% 10 ML Syringe FLUSH PRN; fentaNYL 100 MCG/2 ML SDV ONE
[2019-04-16] MEDS ORDERED: Midazolam 1 MG/ML 2 ML SDV IV ONE ×7 (06:56→07:44)
[2019-04-16] MEDS ORDERED: fentaNYL 100 MCG/2 ML SDV IV ONE ×3 (06:56→07:35)
[2019-04-16] MEDS ORDERED: Dextrose 5%-0.45% NaCl 1,000 ML IV SCH (07:00)
--- NOTE | 2019-04-16 09:21 | OR ---
DATE: 04/16/2019 PROCEDURE: Total colonoscopy. INSTRUMENT USED: [id number] Olympus video colonoscope. PREMEDICATIONS: Fentanyl 100 mcg intravenous, Versed 4 mg intravenous. Nasal O2 cannula. The procedure was done under pulse oximetry, BP recording, and nuclear reactor technician. INDICATION: The patient with iron-deficiency anemia. Colonoscopic examination is done for detection of any polypoid lesions and removal, endoscopic hemostasis therapy if needed. DESCRIPTION OF PROCEDURE: Initial rectal exam was unremarkable. Rigid anoscopy showed small internal hemorrhoids without bleeding from them. The colonoscope was passed with ease up to the ileocecal area. Photographs were taken of the normal-appearing cecum, identified by landmarks of appendiceal orifice and double-bulged ileocecal folds. No bleeding was noted from any of the visualized areas at the commencement of the examination. There was a large amount of fecal material that had to be aspirated. Bowel preparation, [place] scale 2 in all the regions. No stricture. No vascular ectasia. No large isolated ulcerations seen. No evidence of diffuse inflammatory bowel disease in the form of friability, contact bleeding, or ulcerations. No polyp or tumor mass identified. Probing the proximal sides of folds and flexures, using adequate distention and clearing of the stool material, withdrawal of the scope was made, cecum to rectum time over 6 minutes. No bleeding was noted from any of the visualized areas at the completion of examination. IMPRESSION: Internal hemorrhoids. The patient tolerated the procedure well. [facility] /[id number]
--- NOTE | 2019-04-16 09:48 | LETTER ---
04/16/2019 Naren Lepe M.D. [facility] [address] [place] [address] RE: DIANA OLIVAS : [address] Lepe: Mr. Diana Olivas had colonoscopic examination done this morning and he tolerated the procedure well. I herewith send a copy of the endoscopy note and photographs for your review. Thank you. Sincerely, [facility] /[id number]
[2019-04-16 09:57] VITALS: BP 157/89
== END 2019-04-16 10:00 | disposition home or self-care (01) ==
LOC: DL.ENDO 06:55
PROVIDERS: ATTEND Internal Medicine Gastroenterology
DX: D50.9 Iron deficiency anemia, unspecified (principal); K64.8 Other hemorrhoids
CPT/HCPCS: 45378; J2250; J3010; J7042; G0121

== ENCOUNTER 2019-07-09 15:13 | Emergency (ER) | payer BC, OTHER ==
[2019-07-09 15:26] VITALS: BP 141/94; PULSE 103
--- NOTE | 2019-07-09 16:57 | EDM.PDOC ---
ED HPI GENERAL MEDICAL PROBLEM - General Chief Complaint: Head Injury Stated Complaint: AMBULANCE Time Seen by Provider: 07/09/19 15:45 Source of Information: Reports: Patient History Limitations: Reports: No Limitations - History of Present Illness INITIAL COMMENTS - FREE TEXT/NARRATIVE: patient comes emergency department today with complaints of a headache and dizziness. He was seen at the [facility] clinic and sent here for further evaluation for a CAT scan of his head as well as the cervical spine. On Saturday he was outside shoveling snow when he slipped falling backwards and struck his head on the ground and was knocked out. According to his security camera he was out for just about 6-1/2 minutes. He did not come in and be evaluated at that time due to the weather. Since that time he has had kind of a dull headache no double vision. He has some lightheadedness upon standing. No other syncope. He did fall over in the grocery store yesterday when he was leaning forward to grab something he became lightheaded fell and hit his head but was not knocked out. He has had no nausea or vomiting. No diplopia no paresthesias of his upper or lower extremity. No change in the functionality of his upper or lower tremors. No loss of bowel or bladder. No chest pain or shortness of breath or difficulty breathing. No palpitations. No weakness or paresthesia. No abdominal pain nausea or vomiting and he denies back pain. Posterior Head Pain Score (Numeric/FACES): 4 - Related Data Allergies Allergy/AdvReac Type Severity Reaction Status Date / Time amlodipine Allergy Tachycardia Verified 07/09/19 15:26 clonidine Allergy Cannot Verified 07/09/19 15:26 Remember lisinopril Allergy Airway Verified 07/09/19 15:26 Tightness valdecoxib [From Bextra] Allergy Swollen Verified 07/09/19 15:26 Tongue Home Meds: Home Meds Insulin Aspart [NovoLOG] 40 units SUBCUT TID 05/09/15 [History] Insulin Detemir [Levemir Flextouch] 150 units SUBCUT BEDTIME 05/09/15 [History] Losartan [Cozaar] 100 mg PO DAILY 05/09/15 [History] Omeprazole 20 mg PO BID 05/09/15 [History] metFORMIN [Glucophage] 1,000 mg PO BEDTIME 05/09/15 [History] Albuterol Inhaler 2 puff PF ASDIRECTED PRN 06/05/15 [History] Insulin Detemir [Levemir] 40 units INJECT .MORNING 11/01/15 [History] atorvaSTATin [Lipitor] 10 mg PO DAILY 11/01/15 [History] Chlorthalidone 50 mg PO DAILY 12/12/16 [History] metFORMIN HCl [Metformin HCl] 1,500 mg PO DAILY 12/12/16 [History] Albuterol/Ipratropium [DuoNeb 3.0-0.5 MG/3 ML] 3 ml NEB Q6HRRT PRN 07/21/17 [ History] Pioglitazone [Actos] 30 mg PO DAILY 07/21/17 [History] Clobetasol [Clobetasol 0.05%] 1 applic TOP BID 03/19/19 [History] Ergocalciferol (Vitamin D2) [Vitamin D2] 2,000 unit PO DAILY 03/19/19 [History] Melatonin/Pyridoxine HCl (B6) [Melatonin 3 mg Tablet] 1 each PO .PRN PRN [History] Potassium Citrate [Urocit-K] 10 meq PO BID 03/19/19 [History] Secukinumab [Cosentyx Pen] 1 injection SQ .Q28 DAYS 03/19/19 [History] Vitamin B Complex [B Complex] 1 each PO DAILY 03/19/19 [History] Albuterol Sulfate [Proair Hfa] 1 puff INH BID 07/09/19 [History] Past Medical History HEENT History: Reports: Impaired Vision Other HEENT History: wears glasses Cardiovascular History: Reports: CAD, High Cholesterol, Hypertension, SOB on Exertion Respiratory History: Reports: Asthma, Sleep Apnea, SOB Gastrointestinal History: Reports: GERD Genitourinary History: Reports: None, Renal Calculus Musculoskeletal History: Reports: Arthritis, Back Pain, Chronic, Fracture Neurological History: Reports: Neuropathy, Diabetic Psychiatric History: Reports: None Endocrine/Metabolic History: Reports: Diabetes, Type II, IDDM, Obesity/BMI 30+ Hematologic History: Reports: B12 Deficiency Immunologic History: Reports: None Oncologic (Cancer) History: Reports: None Dermatologic History: Reports: Angiodema, Psoriasis - Infectious Disease History Infectious Disease History: Reports: Influenza Other Infectious Disease History: does not know if he has had any childhood diseases - Past Surgical History Head Surgeries/Procedures: Reports: None Cardiovascular Surgical History: Reports: Other (See Below) Other Cardiovascular Surgeries/Procedures: angiogram (normal per patient) Respiratory Surgical History: Reports: None GI Surgical History: Reports: EGD Male Surgical History: Reports: Lithotripsy (ESWL) Musculoskeletal Surgical History: Reports: Arthroscopic Knee Other Musculoskeletal Surgeries/Procedures:: RIGHT KNEE SURGERY Social & Family History - Family History Family Medical History: Noncontributory Cardiac: Reports: CAD, High Cholesterol, Hypertension Respiratory: Reports: Asthma GI: Reports: Cholelithiasis Endocrine/Metabolic: Reports: Diabetes, type II, Obesity/MBI 30+ - Tobacco Use Smoking Status *Q: Never Smoker Second Hand Smoke Exposure: No - Caffeine Use Caffeine Use: Reports: Soda Other Caffeine Use: 1 ENERGY DRINK DAILY. 1SODA DAILY - Recreational Drug Use Recreational Drug Use: No - Living Situation & Occupation Living situation: Reports: with Family Occupation: Unemployed ED ROS GENERAL - Review of Systems Review Of Systems: ROS reveals no pertinent complaints other than HPI. ED EXAM, HEAD INJURY - Physical Exam Exam: See Below Exam Limited By: No Limitations General Appearance: Alert, WD/WN, No Apparent Distress Head: Atraumatic, Normocephalic. No: Coleman's Sign, Raccoon Eyes Nexus Criteria: No: Posterior, Midline Cervical Tenderness (no midline tenderness some paraspinal tenderness), Evidence of Intoxication, Altered Level of Consciousness, Focal Neurological Deficit, Painful Distraction Injuries Eyes: Bilateral Eye: EOMI, Normal Inspection, PERRL Ears: Normal External Exam (except for some psoriasis on his ears chronic), Normal Canal, Normal TMs. No: TM Blood Nose: Normal Inspection Throat/Mouth: Normal Inspection, Normal Lips, Normal Oropharynx Neck: Limited Range of Motion, Paraspinous Muscle Tender. No: Tender Midline Respiratory: No Respiratory Distress, Lungs Clear, Normal Breath Sounds, No Accessory Muscle Use Cardiovascular: Normal Peripheral Pulses, Regular Rate, Rhythm GI/Abdominal Exam: Normal Bowel Sounds, Soft, Non-Tender Back Exam: Normal Inspection, Full Range of Motion. No: Paraspinal Tenderness, Vertebral Tenderness Extremities: Normal Inspection, Normal Range of Motion, Normal Capillary Refill Neurologic: No Motor/Sensory Deficits, Alert, Normal Mood/Affect, Oriented x 3 DTR: 2+: Bicep (R), Bicep (L), Patella (R), Patella (L), Achilles (R), Achilles (L) Skin: Normal Color, Warm/Dry - Eva Coma Score Best Eye Response (Bowdle): (4) Open Spontaneously Best Verbal Response (Eva): (5) Oriented Best Motor Response (Bowdle): (6) Obeys Commands Course - Vital Signs Last Recorded V/S: Last Vital Signs Temp 36.8 C 07/09/19 15:16 Pulse 103 H 07/09/19 15:16 Resp 16 07/09/19 15:16 BP 141/94 H 07/09/19 15:16 Pulse Ox 98 07/09/19 15:16 - Radiology Interpretation Free Text/Narrative:: CT cervical spine per radiology normal no sign of traumatic cervical injury CT of the head per radiology normal no changeon a traumatic injury. Chronic mild left maxillary fluid - Re-Assessments/Exams Free Text/Narrative Re-Assessment/Exam: 07/09/19 17:21 I reviewed the negative CT of the head of the neck to the patient. This is really the sequelae of postconcussion syndrome. We will refer him to physical therapy rest and decrease stimulation and follow-up with his primary care is comfortable with this plan his questions are answered Departure - Departure Time of Disposition: 16:54 Disposition: Home, Self-Care 01 Clinical Impression: Post-concussion syndrome - Discharge Information Instructions: Concussion, Adult, [id number], Post-Concussion Syndrome, Easy- to-Read Forms: ED Department Discharge Additional Instructions: rest as much as possible. To include decreased stimulation from lights and sounds. Especially from back lit devices like phones her tablets Tylenol as needed for headache. Make position changes Slowly See physical therapy for post concussion syndrome management next available. Return to the ED if new or worsening symptoms Follow up with PCP in 1 week for recheck. - Assessment/Plan Assessment:: Post concussion syndrom. Plan: rest as much as possible. To include decreased stimulation from lights and sounds. Especially from back lit devices like phones her tablets Tylenol as needed for headache. Make position changes Slowly See physical therapy for post concussion syndrome management next available. Return to the ED if new or worsening symptoms Follow up with PCP in 1 week for recheck.
== END 2019-07-09 17:05 | disposition home or self-care (01) ==
LOC: DL.ED 15:13
DX: R42 Dizziness and giddiness (principal); F07.81 Postconcussional syndrome; G44.309 Post-traumatic headache, unspecified, not intractable; K21.9 Gastro-esophageal reflux disease without esophagitis; E11.9 Type 2 diabetes mellitus without complications; I10 Essential (primary) hypertension; I25.10 Atherosclerotic heart disease of native coronary artery without angina pectoris; E78.00 Pure hypercholesterolemia, unspecified; J45.909 Unspecified asthma, uncomplicated; E66.9 Obesity, unspecified; Z88.8 Allergy status to other drugs, medicaments and biological substances; Z88.6 Allergy status to analgesic agent; Z79.899 Other long term (current) drug therapy; Z68.43 Body mass index [BMI] 50.0-59.9, adult; Z79.4 Long term (current) use of insulin
CPT/HCPCS: 70450; 72125; 99284

== ENCOUNTER 2019-08-25 21:12 | Emergency (ER) | payer BC, OTHER ==
[2019-08-25 21:21] VITALS: BP 163/98; PULSE 120
[2019-08-25] MEDS ORDERED: predniSONE 20 MG Tab PO ONE (21:48)
[2019-08-25] MEDS ORDERED: Acetaminophen/HYDROcodone 325-10 MG Tab PO ONE (21:48)
[2019-08-25] MEDS ORDERED: Cyclobenzaprine 10 MG Tab PO ONE (21:48)
--- NOTE | 2019-08-25 21:53 | EDM.PDOC ---
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 Pain lateral back worse with movement. no radiation of pain. 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 Lower Back Pain Score (Numeric/FACES): 6 - Related Data Allergies Allergy/AdvReac Type Severity Reaction Status Date / Time amlodipine Allergy Tachycardia Verified 07/09/19 15:26 clonidine Allergy Cannot Verified 07/09/19 15:26 Remember lisinopril Allergy Airway Verified 07/09/19 15:26 Tightness valdecoxib [From Bextra] Allergy Swollen Verified 07/09/19 15:26 Tongue Home Meds: Home Meds Insulin Aspart [NovoLOG] 40 units SUBCUT TID 05/09/15 [History] Insulin Detemir [Levemir Flextouch] 150 units SUBCUT BEDTIME 05/09/15 [History] Losartan [Cozaar] 100 mg PO DAILY 05/09/15 [History] Omeprazole 20 mg PO BID 05/09/15 [History] metFORMIN [Glucophage] 1,000 mg PO BEDTIME 05/09/15 [History] Albuterol Inhaler 2 puff PF ASDIRECTED PRN 06/05/15 [History] Insulin Detemir [Levemir] 50 units INJECT .MORNING 11/01/15 [History] atorvaSTATin [Lipitor] 10 mg PO DAILY 11/01/15 [History] Chlorthalidone 50 mg PO DAILY 12/12/16 [History] metFORMIN HCl [Metformin HCl] 1,500 mg PO DAILY 12/12/16 [History] Albuterol/Ipratropium [DuoNeb 3.0-0.5 MG/3 ML] 3 ml NEB Q6HRRT PRN 07/21/17 [ History] Pioglitazone [Actos] 30 mg PO DAILY 07/21/17 [History] Clobetasol [Clobetasol 0.05%] 1 applic TOP BID PRN 03/19/19 [History] Ergocalciferol (Vitamin D2) [Vitamin D2] 2,000 unit PO DAILY 03/19/19 [History] Melatonin/Pyridoxine HCl (B6) [Melatonin 3 mg Tablet] 1 each PO .PRN PRN [History] Potassium Citrate [Urocit-K] 10 meq PO BID 03/19/19 [History] Secukinumab [Cosentyx Pen] 1 injection SQ .Q28 DAYS 03/19/19 [History] Vitamin B Complex [B Complex] 1 each PO DAILY 03/19/19 [History] Albuterol Sulfate [Proair Hfa] 1 puff INH BID 07/09/19 [History] Past Medical History HEENT History: Reports: Impaired Vision Other HEENT History: wears glasses Cardiovascular History: Reports: CAD, High Cholesterol, Hypertension, SOB on Exertion Respiratory History: Reports: Asthma, Sleep Apnea, SOB Gastrointestinal History: Reports: GERD Genitourinary History: Reports: None, Renal Calculus Musculoskeletal History: Reports: Arthritis, Back Pain, Chronic, Fracture Neurological History: Reports: Neuropathy, Diabetic Psychiatric History: Reports: None Endocrine/Metabolic History: Reports: Diabetes, Type II, IDDM, Obesity/BMI 30+ Hematologic History: Reports: B12 Deficiency Immunologic History: Reports: None Oncologic (Cancer) History: Reports: None Dermatologic History: Reports: Angiodema, Psoriasis - Infectious Disease History Infectious Disease History: Reports: Influenza Other Infectious Disease History: does not know if he has had any childhood diseases - Past Surgical History Head Surgeries/Procedures: Reports: None Cardiovascular Surgical History: Reports: Other (See Below) Other Cardiovascular Surgeries/Procedures: angiogram (normal per patient) Respiratory Surgical History: Reports: None GI Surgical History: Reports: EGD Male Surgical History: Reports: Lithotripsy (ESWL) Musculoskeletal Surgical History: Reports: Arthroscopic Knee Other Musculoskeletal Surgeries/Procedures:: RIGHT KNEE SURGERY Social & Family History - Family History Family Medical History: Noncontributory Cardiac: Reports: CAD, High Cholesterol, Hypertension Respiratory: Reports: Asthma GI: Reports: Cholelithiasis Endocrine/Metabolic: Reports: Diabetes, type II, Obesity/MBI 30+ - Tobacco Use Smoking Status *Q: Never Smoker Second Hand Smoke Exposure: No - Caffeine Use Caffeine Use: Reports: Soda Other Caffeine Use: 1 ENERGY DRINK DAILY. 1SODA DAILY - Recreational Drug Use Recreational Drug Use: No - Living Situation & Occupation Living situation: Reports: with Family Occupation: Unemployed ED ROS GENERAL - Review of Systems Review Of Systems: Comprehensive ROS is negative, except as noted in HPI. ED EXAM,LOWER BACK PAIN/INJURY - Physical Exam Exam: See Below Exam Limited By: No Limitations General Appearance: Alert, Mild Distress, Obese Eye Exam: Bilateral Eye: EOMI Ears: Normal External Exam Nose: Normal Inspection Throat/Mouth: Normal Inspection Head: Atraumatic, Normocephalic Neck: Normal Inspection Respiratory/Chest: No Respiratory Distress, Lungs Clear Cardiovascular: Regular Rate, Rhythm GI/Abdominal: Soft Back Exam: Decreased Range of Motion, Paraspinal Tenderness (bilateral lumbar). No: Vertebral Tenderness Extremities: Normal Inspection Neurological: Alert, Normal Mood/Affect, Normal Dorsiflexion Skin Exam: Warm, Dry, Intact, Normal Color Course - Vital Signs Last Recorded V/S: Last Vital Signs Temp 98.8 F 08/25/19 21:20 Pulse 120 H 08/25/19 21:20 Resp 18 08/25/19 21:20 BP 163/98 H 08/25/19 21:20 Pulse Ox 96 08/25/19 21:20 - Orders/Labs/Meds Meds: Medications Discontinued Medications Generic Name Dose Route Start Last Admin Trade Name Freq PRN Reason Stop Dose Admin Hydrocodone Bitart/Acetaminophen 1 tab 08/25/19 21:48 08/25/19 21:55 Metaline 325-10 Mg PO 08/25/19 21:49 1 tab ONETIME ONE Administration Hydrocodone Bitart/Acetaminophen Confirm 08/25/19 22:01 Metaline 325-10 Mg Administered 08/25/19 22:02 Dose 1 tab .ROUTE .STK-MED ONE Cyclobenzaprine HCl 10 mg 08/25/19 21:48 08/25/19 21:56 Flexeril PO 08/25/19 21:49 10 mg ONETIME ONE Administration Cyclobenzaprine HCl Confirm 08/25/19 22:01 Flexeril Administered 08/25/19 22:02 Dose 10 mg .ROUTE .STK-MED ONE Prednisone 20 mg 08/25/19 21:48 08/25/19 21:56 Prednisone PO 08/25/19 21:49 20 mg ONETIME ONE Administration Departure - Departure Time of Disposition: 21:51 Disposition: Home, Self-Care 01 Condition: Good Clinical Impression: Strain of lumbar region Qualifiers: Encounter type: initial encounter Qualified Code(s): S39.012A - Strain of muscle, fascia and tendon of lower back, initial encounter - Discharge Information *PRESCRIPTION DRUG MONITORING PROGRAM REVIEWED*: No *COPY OF PRESCRIPTION DRUG MONITORING REPORT IN PATIENT KRANTHI: No Instructions: Low Back Sprain Forms: ED Department Discharge Additional Instructions: Prednisone 20mg x 2 days, 10mg, 2 days 5mg x 2 days flexeril 10mg one every 8 hours as needed tylenol 650mg every 6 hours as needed rest no lifting follow up clinic next week, sooner if symptoms worsen
[2019-08-25] MEDS ORDERED: Cyclobenzaprine 10 MG Tab ONE (22:01)
[2019-08-25] MEDS ORDERED: Acetaminophen/HYDROcodone 325-10 MG Tab ONE (22:01)
== END 2019-08-25 22:07 | disposition home or self-care (01) ==
LOC: DL.ED 21:12
DX: S39.012A Strain of muscle, fascia and tendon of lower back, initial encounter (principal); I25.10 Atherosclerotic heart disease of native coronary artery without angina pectoris; E78.00 Pure hypercholesterolemia, unspecified; I10 Essential (primary) hypertension; J45.909 Unspecified asthma, uncomplicated; K21.9 Gastro-esophageal reflux disease without esophagitis; E11.40 Type 2 diabetes mellitus with diabetic neuropathy, unspecified; M19.90 Unspecified osteoarthritis, unspecified site; L40.9 Psoriasis, unspecified; E66.9 Obesity, unspecified; Z68.42 Body mass index [BMI] 45.0-49.9, adult; Z88.8 Allergy status to other drugs, medicaments and biological substances; Z88.6 Allergy status to analgesic agent; Z79.4 Long term (current) use of insulin; Z79.899 Other long term (current) drug therapy; X50.0XXA Overexertion from strenuous movement or load, initial encounter; Y99.0 Civilian activity done for income or pay
CPT/HCPCS: 99283; A9270

== ENCOUNTER 2020-03-08 15:52 | Emergency (ER) | payer OTHER ==
[2020-03-08 16:17] VITALS: BP 125/59; PULSE 78
--- NOTE | 2020-03-08 16:34 | CR ---
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 Views: 3 or more views. COMPARISON: No relevant prior studies available. FINDINGS: Bones/joints: Mild enthesopathy at the insertion of the Achilles tendon.There is a plantar calcaneal spur. No acute fracture or dislocation. Soft tissues: Normal. Vasculature: Atherosclerosis IMPRESSION: No acute finding.
[2020-03-08] MEDS ORDERED: Acetaminophen 325 MG Tab PO ONE (16:38)
--- NOTE | 2020-03-08 16:52 | EDM.PDOC ---
Scribed by Shalonda Yañez 03/08/20 [id number] for Lynsey Martin NP ED HPI GENERAL MEDICAL PROBLEM - General Chief Complaint: Lower Extremity Injury/Pain Stated Complaint: RIGHT FOOT BROKEN PER PT. Time Seen by Provider: 03/08/20 16:29 Source of Information: Reports: Patient, RN, RN Notes Reviewed History Limitations: Reports: No Limitations - History of Present Illness INITIAL COMMENTS - FREE TEXT/NARRATIVE: Patient presents to ER with complaint of right foot pain. 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 Rates the pain 5/10--burning pain. No previous injuries to the foot. he has taken no meds for pain. Onset: Today Duration: Getting Worse Location: Reports: Lower Extremity, Right Quality: Reports: Ache Severity: Moderate Improves with: Reports: None Worsens with: Reports: None Associated Symptoms: Reports: No Other Symptoms - Related Data Allergies Allergy/AdvReac Type Severity Reaction Status Date / Time amlodipine Allergy Tachycardia Verified 07/09/19 15:26 clonidine Allergy Cannot Verified 07/09/19 15:26 Remember lisinopril Allergy Airway Verified 07/09/19 15:26 Tightness valdecoxib [From Bextra] Allergy Swollen Verified 07/09/19 15:26 Tongue Home Meds: Home Meds Insulin Aspart [NovoLOG] 40 units SUBCUT TID 05/09/15 [History] Insulin Detemir [Levemir Flextouch] 150 units SUBCUT BEDTIME 05/09/15 [History] Losartan [Cozaar] 100 mg PO DAILY 05/09/15 [History] Omeprazole 20 mg PO BID 05/09/15 [History] metFORMIN [Glucophage] 1,000 mg PO BEDTIME 05/09/15 [History] Albuterol Inhaler 2 puff PF ASDIRECTED PRN 06/05/15 [History] Insulin Detemir [Levemir] 50 units INJECT .MORNING 11/01/15 [History] atorvaSTATin [Lipitor] 10 mg PO DAILY 11/01/15 [History] Chlorthalidone 50 mg PO DAILY 12/12/16 [History] metFORMIN HCl [Metformin HCl] 1,500 mg PO DAILY 12/12/16 [History] Albuterol/Ipratropium [DuoNeb 3.0-0.5 MG/3 ML] 3 ml NEB Q6HRRT PRN 07/21/17 [ History] Pioglitazone [Actos] 30 mg PO DAILY 07/21/17 [History] Clobetasol [Clobetasol 0.05%] 1 applic TOP BID PRN 03/19/19 [History] Ergocalciferol (Vitamin D2) [Vitamin D2] 2,000 unit PO DAILY 03/19/19 [History] Melatonin/Pyridoxine HCl (B6) [Melatonin 3 mg Tablet] 1 each PO .PRN PRN [History] Potassium Citrate [Urocit-K] 10 meq PO BID 03/19/19 [History] Secukinumab [Cosentyx Pen] 1 injection SQ .Q28 DAYS 03/19/19 [History] Vitamin B Complex [B Complex] 1 each PO DAILY 03/19/19 [History] Albuterol Sulfate [Proair Hfa] 1 puff INH BID 07/09/19 [History] Past Medical History HEENT History: Reports: Impaired Vision Other HEENT History: wears glasses Cardiovascular History: Reports: CAD, High Cholesterol, Hypertension, SOB on Exertion Respiratory History: Reports: Asthma, Sleep Apnea, SOB Gastrointestinal History: Reports: GERD Genitourinary History: Reports: None, Renal Calculus Musculoskeletal History: Reports: Arthritis, Back Pain, Chronic, Fracture Neurological History: Reports: Neuropathy, Diabetic Psychiatric History: Reports: None Endocrine/Metabolic History: Reports: Diabetes, Type II, IDDM, Obesity/BMI 30+ Hematologic History: Reports: B12 Deficiency Immunologic History: Reports: None Oncologic (Cancer) History: Reports: None Dermatologic History: Reports: Angiodema, Psoriasis - Infectious Disease History Infectious Disease History: Reports: Influenza Other Infectious Disease History: does not know if he has had any childhood diseases - Past Surgical History Head Surgeries/Procedures: Reports: None Cardiovascular Surgical History: Reports: Other (See Below) Other Cardiovascular Surgeries/Procedures: angiogram (normal per patient) Respiratory Surgical History: Reports: None GI Surgical History: Reports: EGD Male Surgical History: Reports: Lithotripsy (ESWL) Musculoskeletal Surgical History: Reports: Arthroscopic Knee Other Musculoskeletal Surgeries/Procedures:: RIGHT KNEE SURGERY Social & Family History - Family History Family Medical History: Noncontributory Cardiac: Reports: CAD, High Cholesterol, Hypertension Respiratory: Reports: Asthma GI: Reports: Cholelithiasis Endocrine/Metabolic: Reports: Diabetes, type II, Obesity/MBI 30+ - Caffeine Use Caffeine Use: Reports: Soda Other Caffeine Use: 1 ENERGY DRINK DAILY. 1SODA DAILY - Living Situation & Occupation Living situation: Reports: with Family Occupation: Unemployed Review of Systems - Review of Systems Review Of Systems: Comprehensive ROS is negative, except as noted in HPI. ED EXAM, GENERAL - Physical Exam Exam: See Below Exam Limited By: No Limitations General Appearance: Obese Eye Exam: Bilateral Eye: EOMI, Normal Inspection, PERRL Ears: Normal External Exam, Normal Canal, Hearing Grossly Normal, Normal TMs Nose: Normal Inspection, Normal Mucosa, No Blood Throat/Mouth: Normal Inspection, Normal Lips, Normal Teeth, Normal Gums, Normal Oropharynx, Normal Voice, No Airway Compromise Head: Atraumatic, Normocephalic Neck: Normal Inspection, Supple, Non-Tender, Full Range of Motion Respiratory/Chest: No Respiratory Distress, Lungs Clear, Normal Breath Sounds, No Accessory Muscle Use, Chest Non-Tender Cardiovascular: Normal Peripheral Pulses, Regular Rate, Rhythm, No Edema, No Gallop, No JVD, No Murmur, No Rub GI/Abdominal: Normal Bowel Sounds, Soft, Non-Tender, No Organomegaly, No Distention, No Abnormal Bruit, No Mass (Male) Exam: Deferred Rectal (Males) Exam: Deferred Back Exam: Normal Inspection, Full Range of Motion, NT Extremities: Other (swelling top of right foot. Pedal pulses +2. ) Neurological: Alert, Oriented, CN II-XII Intact, Normal Cognition, Normal Gait, Normal Reflexes, No Motor/Sensory Deficits Psychiatric: Normal Affect, Normal Mood Skin Exam: Dry (very. Eczema) Lymphatic: No Adenopathy Course - Vital Signs Last Recorded V/S: Last Vital Signs Temp 97.1 F 03/08/20 16:12 Pulse 78 03/08/20 16:12 Resp 16 03/08/20 16:12 BP 125/59 L 03/08/20 16:12 Pulse Ox 99 03/08/20 16:12 - Orders/Labs/Meds Meds: Medications Discontinued Medications Generic Name Dose Route Start Last Admin Trade Name Freq PRN Reason Stop Dose Admin Acetaminophen 650 mg 03/08/20 16:38 Tylenol PO 03/08/20 16:39 NOW ONE - Radiology Interpretation Free Text/Narrative:: Right foot xray: PROCEDURE INFORMATION: Exam: XR Right Foot Complete Exam date and time: 03/08/2020 4:24 PM Age: 44 years old Clinical indication: Injury or trauma; Initial encounter; Blunt trauma; Foot; Right; Additional 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 Views: 3 or more views. COMPARISON: No relevant prior studies available. FINDINGS: Bones/joints: Mild enthesopathy at the insertion of the Achilles tendon.There is a plantar calcaneal spur. No acute fracture or dislocation. Soft tissues: Normal. Vasculature: Atherosclerosis IMPRESSION: No acute finding. Thank you for allowing us to participate in the care of your patient. Dictated and Authenticated by: Sonja Ramos MD 03/08/2020 4:34 PM Central Time ([place] & [place]) see rad report Departure - Departure Time of Disposition: 16:39 Disposition: Home, Self-Care 01 Condition: Good Clinical Impression: Contusion of right foot Qualifiers: Encounter type: initial encounter Qualified Code(s): S90.31XA - Contusion of right foot, initial encounter - Discharge Information *PRESCRIPTION DRUG MONITORING PROGRAM REVIEWED*: No *COPY OF PRESCRIPTION DRUG MONITORING REPORT IN PATIENT KRANTHI: No Instructions: Foot Contusion, [id number] Forms: ED Department Discharge Additional Instructions: Elevate and ice as tolerated May use Tylenol as directed for pain Follow up with your primary care facility Sepsis Event Note (ED) - Evaluation Sepsis Screening Result: No Definite Risk - Focused Exam Vital Signs: Vital Signs Temp Pulse Resp BP Pulse Ox 03/08/20 16:12 97.1 F 78 16 125/59 L 99 I have read and agree with the documentation that has been completed regarding this visit. By signing this record, I attest that the documentation was completed in my physical presence and is an accurate record of the encounter.
== END 2020-03-08 17:03 | disposition home or self-care (01) ==
LOC: DL.ED 15:52
DX: S90.31XA Contusion of right foot, initial encounter (principal); I10 Essential (primary) hypertension; E78.00 Pure hypercholesterolemia, unspecified; I25.10 Atherosclerotic heart disease of native coronary artery without angina pectoris; J45.909 Unspecified asthma, uncomplicated; K21.9 Gastro-esophageal reflux disease without esophagitis; M19.90 Unspecified osteoarthritis, unspecified site; E11.40 Type 2 diabetes mellitus with diabetic neuropathy, unspecified; E66.9 Obesity, unspecified; Z68.43 Body mass index [BMI] 50.0-59.9, adult; Z88.8 Allergy status to other drugs, medicaments and biological substances; Z79.4 Long term (current) use of insulin; Z79.899 Other long term (current) drug therapy; W22.8XXA Striking against or struck by other objects, initial encounter; Y93.E5 Activity, floor mopping and cleaning; Y92.89 Other specified places as the place of occurrence of the external cause; Y99.0 Civilian activity done for income or pay
CPT/HCPCS: 73630; 99283; A9270

== ENCOUNTER 2021-01-08 14:00 | Emergency (ER) | payer OTHER ==
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
[2021-01-08] MEDS ORDERED: Albuterol 6.7 GM Inhaler INH ONE (15:34)
[2021-01-08 15:55] VITALS: BP 144/82; PULSE 97
== END 2021-01-08 16:15 | disposition home or self-care (01) ==
LOC: DL.ED 14:00
DX: T59.811A Toxic effect of smoke, accidental (unintentional), initial encounter (principal); R21 Rash and other nonspecific skin eruption; I25.10 Atherosclerotic heart disease of native coronary artery without angina pectoris; E78.00 Pure hypercholesterolemia, unspecified; I10 Essential (primary) hypertension; E66.9 Obesity, unspecified; E11.40 Type 2 diabetes mellitus with diabetic neuropathy, unspecified; J45.909 Unspecified asthma, uncomplicated; Z68.43 Body mass index [BMI] 50.0-59.9, adult; Z79.899 Other long term (current) drug therapy; Z88.8 Allergy status to other drugs, medicaments and biological substances; Z88.6 Allergy status to analgesic agent
CPT/HCPCS: 71046; 82375; A9270; 99283; 99284-25

== ENCOUNTER 2021-11-16 21:05 | Emergency (ER) | payer OTHER ==
[2021-11-16] MEDS ORDERED: Acetaminophen/HYDROcodone 325-10 MG Tab PO ONE (21:06)
[2021-11-16 21:16] VITALS: PULSE 117
[2021-11-16] MEDS ORDERED: Acetaminophen/oxyCODONE 325-5 MG Tab PO ONE (21:38)
[2021-11-17] MEDS ORDERED: Acetaminophen/HYDROcodone 325-10 MG Tab ONE (00:24)
== END 2021-11-17 00:28 | disposition home or self-care (01) ==
LOC: DL.ED 21:05
DX: S00.83XA Contusion of other part of head, initial encounter (principal); R07.81 Pleurodynia; M54.6 Pain in thoracic spine; I25.10 Atherosclerotic heart disease of native coronary artery without angina pectoris; E78.00 Pure hypercholesterolemia, unspecified; I10 Essential (primary) hypertension; K21.9 Gastro-esophageal reflux disease without esophagitis; E11.9 Type 2 diabetes mellitus without complications; E66.9 Obesity, unspecified; Z68.41 Body mass index [BMI] 40.0-44.9, adult; Z88.5 Allergy status to narcotic agent; Z88.8 Allergy status to other drugs, medicaments and biological substances; W00.0XXA Fall on same level due to ice and snow, initial encounter
CPT/HCPCS: 70450; 71250; 72125; 99283; A9270

== ENCOUNTER 2021-12-21 16:56 | Emergency (ER) | payer OTHER ==
[2021-12-21] MEDS ORDERED: Sodium Chloride 0.9% 10 ML Syringe FLUSH PRN (17:07)
[2021-12-21 17:52] LABS: ANION GAP 13.9 mEq/L (7-13); CHLORIDE,CL 99 mmol/L (98-107); SODIUM,NA 137 mmol/L (136-145)
[2021-12-21] MEDS ORDERED: Iopamidol 755 Mg/ML 100 ML Bottle IVPUSH ONE (18:01)
[2021-12-21 21:49] VITALS: BP 126/89; PULSE 98
== END 2021-12-21 21:45 | disposition home or self-care (01) ==
LOC: DL.ED 16:56
DX: R07.89 Other chest pain (principal); R53.83 Other fatigue; I25.10 Atherosclerotic heart disease of native coronary artery without angina pectoris; E78.00 Pure hypercholesterolemia, unspecified; I10 Essential (primary) hypertension; K21.9 Gastro-esophageal reflux disease without esophagitis; E11.40 Type 2 diabetes mellitus with diabetic neuropathy, unspecified; J44.9 Chronic obstructive pulmonary disease, unspecified; E66.9 Obesity, unspecified; Z68.41 Body mass index [BMI] 40.0-44.9, adult
CPT/HCPCS: 36415; 70460; 70491; 80053; 83605; 83690; 83735; 84443; 84484; 85025; 85379; 86140; 93005; 93010; 99285; 99285-25; J3490; Q9967

== ENCOUNTER 2022-05-03 19:05 | Emergency (ER) | payer OTHER ==
[2022-05-03 19:33] VITALS: BP 120/78; PULSE 84
[2022-05-03 20:05] LABS: ANION GAP 13.7 mEq/L (7-13)
== END 2022-05-03 20:30 | disposition home or self-care (01) ==
LOC: DL.ED 19:05
DX: U07.1 COVID-19 (principal); T75.4XXA Electrocution, initial encounter; E11.65 Type 2 diabetes mellitus with hyperglycemia; I25.10 Atherosclerotic heart disease of native coronary artery without angina pectoris; K21.9 Gastro-esophageal reflux disease without esophagitis; I10 Essential (primary) hypertension; E66.9 Obesity, unspecified; Z68.41 Body mass index [BMI] 40.0-44.9, adult; Z88.8 Allergy status to other drugs, medicaments and biological substances; Z79.899 Other long term (current) drug therapy; Z86.16 Personal history of COVID-19; Z20.822 Contact with and (suspected) exposure to COVID-19
CPT/HCPCS: 36415; 80053; 84484; 85025; 93005; 93010; 99284; 99285; U0002

== ENCOUNTER 2023-02-18 16:02 | Emergency (ER) | payer OTHER ==
[2023-02-18 16:21] LABS: BASOPHILS PERCENT AUTO 0.7 % (0.0-1.0); EOSINOPHILS PERCENT AUTO 4.6 % (1.0-3.0); HEMATOCRIT 48.4 % (40.0-54.0); HEMOGLOBIN 16.1 g/dL (14.0-18.0); LYMPHOCYTES PERCENT AUTO 22.1 % (20.5-50.1); MEAN CORPUSCULAR HEMOGLOBIN 28.9 pg (27.0-34.0); MEAN CORPUSCULAR HGB CONC 33.3 g/dL (33.0-35.0); MEAN CORPUSCULAR VOLUME 86.9 fL (80-100); MONOCYTES PERCENT AUTO 8.7 % (2-8); NEUTROPHILS PERCENT AUTO 63.9 % (42.2-75.2); PLATELET COUNT,PLT 272 10^3/uL (150-450); RED BLOOD CELL COUNT 5.57 10^6/uL (4.6-6.2); WHITE BLOOD CELL COUNT,WBC 10.2 10^3/uL (5.0-10.0)
[2023-02-18 16:45] LABS: A/G RATIO 0.9; ALBUMIN 3.8 g/dL (3.4-5.0); ANION GAP 10.6 mEq/L (7-13); BILIRUBIN TOTAL 0.9 mg/dL (0.2-1.0); BUN/CREATININE RATIO 21.8 (No establ ref range); C-REACTIVE PROTEIN 0.4 mg/dL (0.0-0.9); CALCIUM 9.2 mg/dL (8.5-10.1); CREATININE 1.1 mg/dL (0.70-1.30); EST CRCL DRUG DOSING (CG) 81.18 mL/min; POTASSIUM,K 3.6 mmol/L (3.5-5.1); PROTEIN TOTAL,TP 7.9 g/dL (6.4-8.2)
[2023-02-18 16:46] LABS: LACTIC ACID 0.6 mmol/L (0.4-2.0)
[2023-02-18 16:59] LABS: APPEARANCE,URINE CLEAR (CLEAR); BILIRUBIN,URINE NEGATIVE (NEGATIVE); COLOR,URINE YELLOW (YELLOW); GLUCOSE,URINE NEGATIVE (NEGATIVE); KETONES,URINE NEGATIVE (NEGATIVE); LEUKOCYTE ESTERASE,URINE NEGATIVE (NEGATIVE); NITRITE,URINE NEGATIVE (NEGATIVE); OCCULT BLOOD,URINE NEGATIVE (NEGATIVE); PH,URINE 5.5 (5.0-9.0); PROTEIN,URINE 100 (NEGATIVE); UROBILINOGEN,URINE 0.2 mg/dL (0.2-1.0)
[2023-02-18 17:01] LABS: AMPHETAMINES,URINE NEGATIVE (NEGATIVE); BARBITURATES,URINE NEGATIVE (NEGATIVE); BENZODIAZEPINE,URINE NEGATIVE (NEGATIVE); MDMA (ECSTASY), URINE NEGATIVE (NEGATIVE); METHADONE,URINE NEGATIVE (NEGATIVE); METHAMPHETAMINES,URINE NEGATIVE (NEGATIVE); OPIATES,URINE NEGATIVE (NEGATIVE); OXYCODONE,URINE NEGATIVE (NEGATIVE); PHENCYCLIDINE,URINE NEGATIVE (NEGATIVE); TCA,URINE NEGATIVE (NEGATIVE)
[2023-02-18 17:11] LABS: WBC,URINE 0-5 /HPF (0-5/HPF)
[2023-02-18 17:12] LABS: BACTERIA,URINE FEW /HPF (0-FEW/HPF); EPITHELIAL CELLS,URINE FEW /HPF (NOT SEEN); HYALINE CASTS,URINE RARE; MUCUS,URINE RARE /LPF (NOT SEEN); RBC,URINE 0-5 /HPF (0-5)
[2023-02-18 17:23] LABS: PROTHROMBIN TIME 9.9 SEC (9.0-12.0); PTT,PARTIAL THROMBOPLSTIN TIME 27.2 SEC (22.0-34.0)
[2023-02-18 17:27] VITALS: BP 114/77; PULSE 62
== END 2023-02-18 18:16 | disposition home or self-care (01) ==
LOC: DL.ED 16:02
DX: U07.1 COVID-19 (principal); R07.89 Other chest pain; K21.9 Gastro-esophageal reflux disease without esophagitis; E78.00 Pure hypercholesterolemia, unspecified; I10 Essential (primary) hypertension; E11.9 Type 2 diabetes mellitus without complications; E66.9 Obesity, unspecified; Z68.42 Body mass index [BMI] 45.0-49.9, adult; Z88.5 Allergy status to narcotic agent; Z88.8 Allergy status to other drugs, medicaments and biological substances; Z79.899 Other long term (current) drug therapy; Z86.16 Personal history of COVID-19; Z20.822 Contact with and (suspected) exposure to COVID-19
CPT/HCPCS: 36415; 71045; 80053; 80305-QW; 81001; 82150; 83605; 83690; 83880; 84484; 85025; 85610; 85730; 86140; 93005; 99285; U0002